=== PATIENT | male | born 1930 | race Caucasian/White ===

== ENCOUNTER → 2018-11-04 | Outpatient (CLI) | payer OTHER ==
[2018-11-04 12:15] VITALS: BP 161/91
--- NOTE | 2018-12-21 12:25 | LINQ ---
[place] [address] [facility] PROCEDURE REPORT Name: GUILHERME MACK Room #: REG [facility]#: [id number] ������������� Admission: 11/04/18 ������������� Attend Phys: Lars Negrete Discharge: ��� ������������� ��� Date of : 32 Date of Service: 12/21/18 1224 �� Report #: [id number] �������� ��������������������������������������������[id number] THIS REPORT FOR: //name// APPROVED REPORT Patient Location: Out-Patient Room #: cardiac catheter lab prep and hold Stress Nurse: Procedure: [facility] confirm Rx implantation percutaneously Indications: 87-year-old male patient with palpitations and near-syncope Device: [employer] medical confirm Rx implantable loop recorder serial number [id number] [employer] [facility] Brief description of procedure: After informed consent was obtained the patient brought to the cardiac catheterization prep and hold. The left chest was prepped and draped in usual sterile manner. Utilizing 1% lidocaine the proposed incision and tract site was instilled without complications. Continuous oximetric and answered cartographic monitoring ensued throughout the procedure. He lies in a 11 blade a small incision was made. Utilizing blunt dissection a track was developed and with the enclosed deployment tool the confirm Rx was deployed. The subcutaneous tissues and opposed with 2 simple interrupted nonabsorbable suture. The skin was closed with a running subcuticular 3�0 absorbable suture. Steri-Strips 4 x 4 OpSite were utilized. Blood loss: 0 Complications: None Conclusion 1. Successful implantation of a [facility] medical confirm Rx [address] [place] [address] LINQ PROCEDURE REPORT Name: GUILHERME MACK Room #: REG [facility]#: [id number] ������������� Admission: 11/04/18 ������������� Attend Phys: Lars Negrete Discharge: ��� ������������� ��� Date of : 32 Date of Service: 12/21/18 1224 �� Report #: [id number] �������� ��������������������������������������������[id number] device 2. Proceed with standard postimplantation care ��������������������������������������������� <ELECTRONICALLY SIGNED> ���������������������������������������� By: Lars Sweeney MD ��������������������������������������������� 12/21/18 1224 1224 1224 Lars Sweeney MD /INF
== END | disposition home or self-care (01) ==
LOC: CATH 11:48
DX: R55 Syncope and collapse (principal)